=== PATIENT | female | born 1985 | race Two or more races ===

== ENCOUNTER 2023-12-13 11:15 | Inpatient (IN) | payer OTHER ==
[~2023-12-13] VITALS: Ht 157.5 cm; Wt 54.4 kg
[2023-12-18] MEDS ORDERED: CEFOXITIN SODIUM 2,000 MG VIAL IV ONE ×3 (16:13→20:30)
[2023-12-18] MEDS ORDERED: POVIDONE-IODINE 118 ML BOTT TOP ONE ×2 (16:13→17:00)
[2023-12-18] MEDS ORDERED: MEPERIDINE HCL/PF 50 MG/ML VIAL IM SCH (18:53)
[2023-12-18] MEDS ORDERED: CEFOXITIN SODIUM 2,000 MG VIAL IV SCH (20:00)
[2023-12-18] MEDS ORDERED: PROMETHAZINE HCL 25 MG/ML AMPUL IM SCH (20:00)
[2023-12-18 21:19] LABS: HEMATOCRIT 32.7 % (36.0-45.00); HEMOGLOBIN 11.3 g/dL (12.0-15.00); MEAN CELL VOLUME 90.3 fL (80.00-100.00); MEAN CORPUSCULAR HEMOGLOBIN 31.2 pg (27.00-32.0); MEAN CORPUSCULAR HGB CONC 34.5 g/dl (32.0-36.0); PLATELET COUNT 145 K/uL (150-450); RED BLOOD COUNT 3.61 M/uL (4.00-6.00); RED CELL DISTRIBUTION WIDTH 13.9 % (11.5-14.5)
[2023-12-19 07:08] LABS: HEMATOCRIT 33.3 % (36.0-45.00); HEMOGLOBIN 11.4 g/dL (12.0-15.00); MEAN CELL VOLUME 90.9 fL (80.00-100.00); MEAN CORPUSCULAR HEMOGLOBIN 31.2 pg (27.00-32.0); MEAN CORPUSCULAR HGB CONC 34.4 g/dl (32.0-36.0); PLATELET COUNT 139 K/uL (150-450); RED BLOOD COUNT 3.66 M/uL (4.00-6.00); RED CELL DISTRIBUTION WIDTH 13.9 % (11.5-14.5)
[2023-12-20] MEDS ORDERED: OxyCODONE HCL/APAP UD (PERCOCET) PO PRN (08:15)
== END 2023-12-20 18:17 | disposition home or self-care (01) | DRG 743 ==
LOC: SURH 12-18 10:30 → O/R 12-18 16:23 → OB/GYN 12-18 20:02
PROVIDERS: ADMIT Obstetrics & Gynecology Obstetrics; ATTEND Obstetrics & Gynecology Obstetrics
PROC: 0UT90ZZ Resection of Uterus, Open Approach (ICD-10-PCS; principal; 2023-12-18 10:30)
DX: D25.2 Subserosal leiomyoma of uterus (principal); N72 Inflammatory disease of cervix uteri; N83.01 Follicular cyst of right ovary; Z20.822 Contact with and (suspected) exposure to COVID-19

== ENCOUNTER 2024-01-01 15:06 | Inpatient (IN) | payer OTHER ==
[~2024-01-01] VITALS: Ht 157.5 cm; Wt 56.7 kg
--- NOTE | 2024-01-01 16:02 | NUR ---
PTE ALERAT Y ORIENTADA X3 REFIERE VENIR A PIPER POR QUE DESDE LAS [place] DE [place]. PTE EXPRESA QUE TUVO MARCO HISTERECTOMIA EL FEBRERO [address] KARTHIK PICKETT. SE KATIE S/V Y SE COLOCA EN OBSERVACION.
--- NOTE | 2024-01-01 17:10 | NUR ---
PTE ALERTA Y ORIENTADA X3. SE REALIZAN MUESTRAS DE LAB YSABEL ORDEN MEDICA Y BAJO MEDIDAS ASEPTICAS POR TITA MARRERO.
[2024-01-01 17:19] LABS: HEMATOCRIT 31.5 % (36.0-45.00); HEMOGLOBIN 10.7 g/dL (12.0-15.00); MEAN CELL VOLUME 88.8 fL (80.00-100.00); MEAN CORPUSCULAR HEMOGLOBIN 30.2 pg (27.00-32.0); PLATELET COUNT 336 K/uL (150-450); RED BLOOD COUNT 3.54 M/uL (4.00-6.00); RED CELL DISTRIBUTION WIDTH 13.7 % (11.5-14.5)
[2024-01-01 17:40] LABS: PARTIAL THROMBOPLASTIN TIME 29.1 SECONDS (22.0-34.0); PROTHROMBIN TIME 10.5 SECONDS (9.0-11.5)
[2024-01-01 17:53] LABS: CALCIUM 9.1 mg/dL (8.5-10.1); CREATININE SERUM 0.74 mg/dL (0.55-1.02); GFR 86.92; POTASSIUM 3.83 mEq/L (3.5-5.1)
[2024-01-01 18:15] LABS: URINE APPEARANCE Clear; URINE BILIRRUBIN Negative (NEGATIVE); URINE BLOOD Large; URINE COLOR Yellow; URINE GLUCOSE Negative (NEGATIVE); URINE LEUKOCYTE Negative; URINE NITRATE Negative; URINE PROTEIN Trace (NEGATIVE)
[2024-01-01 18:19] LABS: URINE BACTERIA 26.4 uL (0.0-1933); URINE EPITHELIAL CELLS 6.3 uL (0.0-38.8); URINE RBC 1467.3 uL (0.0-20.8)
[2024-01-01] MEDS ORDERED: 0.9 % SODIUM CHLORIDE 1,000 ML IV ONE (20:15)
--- NOTE | 2024-01-01 20:30 | NUR ---
DR LAZARA NORTON [place], SE ORIENTA A PACIENTE SOBRE TX Y VERBALIZA ENTENDER.SE CANALIZA PACIENTE Y SE BAJA 0.9N/S @500ML/HR.
[2024-01-01] MEDS ORDERED: RINGERS SOLUTION,LACTATED 1,000 ML IV SCH (21:15)
[2024-01-01] MEDS ORDERED: 0.9 % SODIUM CHLORIDE 1,000 ML IV SCH (21:15)
[2024-01-02 07:18] LABS: MEAN CELL VOLUME 90.3 fL (80.00-100.00); MEAN CORPUSCULAR HGB CONC 34.9 g/dl (32.0-36.0); PLATELET COUNT 215 K/uL (150-450); RED BLOOD COUNT 2.24 M/uL (4.00-6.00); RED CELL DISTRIBUTION WIDTH 13.3 % (11.5-14.5)
[2024-01-02 07:19] LABS: HEMATOCRIT 20.3 % (36.0-45.00); MEAN CORPUSCULAR HEMOGLOBIN 31.6 pg (27.00-32.0)
[2024-01-02 07:20] LABS: HEMOGLOBIN 7.1 g/dL (12.0-15.00)
[2024-01-02] MEDS ORDERED: FUROsemide 20 MG/2 ML VIAL IV SCH (15:00)
[2024-01-03 11:15] LABS: HEMOGLOBIN 11.3 g/dL (12.0-15.00); MEAN CELL VOLUME 89.7 fL (80.00-100.00); MEAN CORPUSCULAR HEMOGLOBIN 31.5 pg (27.00-32.0); MEAN CORPUSCULAR HGB CONC 35.1 g/dl (32.0-36.0); PLATELET COUNT 231 K/uL (150-450); RED BLOOD COUNT 3.57 M/uL (4.00-6.00); RED CELL DISTRIBUTION WIDTH 14.1 % (11.5-14.5)
== END 2024-01-03 19:11 | disposition home or self-care (01) | DRG 761 ==
LOC: ER 15:06 → OB/GYN 01-02 15:24
PROVIDERS: General Practice; ADMIT Obstetrics & Gynecology Obstetrics; ATTEND Obstetrics & Gynecology Obstetrics
PROC: 30233N1 Transfusion of Nonautologous Red Blood Cells into Peripheral Vein, Percutaneous Approach (ICD-10-PCS; principal; 2024-01-02)
DX: N93.9 Abnormal uterine and vaginal bleeding, unspecified (principal); Z20.822 Contact with and (suspected) exposure to COVID-19